=== PATIENT | male | born 1945 | race Caucasian/White ===

== ENCOUNTER 2018-01-12 11:24 | Observation (INO) ==
--- NOTE | 2018-01-12 11:44 | Emergency Department Note ---
Disposition Clinical Impression: Frail elderly, Weakness, CAD (coronary artery disease), Vomiting, Diarrhea, Dyspnea, Hypoxemia, Chest pain, Cardiomegaly, Hyperlipidemia, Hypertension Disposition: Admitted As Inpatient Referrals: Osvaldo Brink Jr, MD [Primary Care Provider] - Forms: ED Satisfaction Letter General Adult HPI - General Chief complaint: ED Shortness of Breath/Dyspnea Stated complaint: HOLLI Time Seen by Provider: 01/12/18 11:41 Source: patient Limitations: no limitations - History of Present Illness HPI Narrative: 72-year-old male with a history of atrial fibrillation and CAD reports emergency department complaining of weakness and shortness of breath. He describes dyspnea on exertion. The patient also describes orthopnea. The patient denies any history of heart failure, he answered history of COPD but is not actively treated for that he does not require oxygen at home. The patient reports increasing weakness over the last few days and increasing dyspnea with exertion over the last few weeks.. He has had some nonbloody emesis and diarrhea. There is no history of acute abdominal pain. There is no history of acute back pain. No syncope leg swelling or pain or coughing up blood. The patient denies any history of CHF per reports he takes his 's Lasix on occasion when his hands well. There is no history of acute leg swelling. No previous history of DVT PE or cancer. No coughing up blood confusion or difficulty moving the arms or legs independently no slurred speech or facial droop. No history of headache or bleeding of any sort. The patient is anticoagulated currently on Xarelto. While in the ED the patient developed some left-sided chest pain which resolved. Pain Scale: 0 - Related Data Home Medications Medication Instructions Recorded Confirmed Dexlansoprazole [Dexilant] 60 mg PO DAILY 08/18/15 09/15/15 Acetaminophen 650 mg PO Q8H 09/15/15 09/15/15 Previous Rx's Medication Instructions Recorded Rivaroxaban [Xarelto] 20 mg PO HS #30 tablet 08/19/15 Aspirin Enteric Coated [Aspirin EC] 81 mg PO DAILY #30 tablet.dr 08/20/15 Atorvastatin [Lipitor] 40 mg PO HS #90 tablet 08/20/15 Metoprolol [Lopressor] 50 mg PO BID #60 tablet 08/20/15 Nitroglycerin 0.4 mg SL Q5MIN PRN #10 tab.subl 08/20/15 Amoxicillin 875 mg PO BID #20 tablet 08/22/17 GuaiFENesin ER [Mucinex] 1,200 mg PO BID #20 tbbp.12hr 08/22/17 Loratadine [Allergy Relief] 10 mg PO DAILY #30 tablet 08/22/17 Polymyxn-B/Trimeth Opth Drops 1 drop BOTH EYES QID #1 bottle 08/22/17 [Polytrim Opth Drops] Allergies Allergy/AdvReac Type Severity Reaction Status Date / Time No Known Drug Allergies Allergy See Verified 01/12/18 11:30 Comments All systems ED: reviewed and negative except as stated. Past Medical History - Past Medical History Medical history: Reports: atrial fibrillation, hyperlipidemia, hypertension, myocardial infarction, other Surgical history: Reports: appendectomy Psychiatric history: Reports: no psych history - Social History Smoking Status: Former smoker Smokeless Tobacco Status: No Alcohol use: Reports: none Drug use: Reports: none Physical Exam - General Limitations: no limitations General appearance: alert, in no apparent distress - Head Head exam: atraumatic, normocephalic, normal inspection - Eye Eye exam: Present: normal appearance, PERRL, EOMI - ENT ENT exam: normal exam, normal oropharynx, mucous membranes moist - Neck Neck exam: Present: normal inspection, full ROM, trachea midline - Chest Chest inspection: Present: symmetric chest wall rise. Absent: tenderness - Respiratory Respiratory exam: Present: normal lung sounds bilaterally. Absent: respiratory distress, wheezes, accessory muscle use, prolonged expiratory phase - Cardiovascular Cardiovascular exam: Present: tachycardia, irregular rhythm - Abdominal Exam Abdominal exam: Present: soft, Non-Tender, normal bowel sounds. Absent: tenderness, distention, guarding, rebound, rigidity, Sharp's sign, Rovsing's sign, tenderness at McBurney's Point, ascites, pulsatile mass - Extremities Exam Extremities exam: Present: normal inspection, full ROM, normal capillary refill. Absent: tenderness, pedal edema, joint swelling, calf tenderness - Expanded Lower Extremity Exam Lower leg exam: Absent: Homans' sign Neurovascular/Tendon exam: Present: normal capillary refill. Absent: motor deficit, sensory deficit, tendon deficit, extremity cold to touch, pallor - Back Exam Back exam: Present: normal inspection, full ROM. Absent: tenderness, CVA tenderness (R), CVA tenderness (L), vertebral tenderness - Neurological Exam Neurological exam: Present: alert, oriented X3, CN II-XII intact. Absent: motor sensory deficit - Psychiatric Psychiatric exam: Present: normal affect, normal mood - Skin Skin exam: Present: warm, dry, intact, normal color. Absent: rash, cyanosis, diaphoresis, erythema, pallor, mottled Course Vital Signs Temperature 97.4 F L 01/12/18 11:30 Pulse Rate 111 01/12/18 11:30 Respiratory Rate 24 01/12/18 11:30 Blood Pressure 112/71 01/12/18 11:30 O2 Sat by Pulse Oximetry 94 01/12/18 11:30 Temperature 97.4 F L 01/12/18 11:30 Pulse Rate 101 01/12/18 13:02 Respiratory Rate 16 01/12/18 13:02 Blood Pressure 123/81 01/12/18 13:02 O2 Sat by Pulse Oximetry 94 01/12/18 13:02 Oxygen Delivery Oxygen Delivery Room Air Medical Decision Making - MDM Narrative Medical decision making narrative: The patient has a history of CAD atrial fibrillation and describes progressive dyspnea on exertion and weakness over the last few weeks. He describes orthopnea. He has no definitive history of CHF.. While in the ED developed some left-sided chest pain which was minor and resolved. His EKG shows no acute ST elevations, initial troponin negative. He is on Xarelto, aspirin ordered. The patient's chest x-ray suggestive of CHF. He has no known history of CHF. The patient has been somewhat tachycardic intermittently of 215, he is also been hypoxemic and 89% on room air. The patient usually has no oxygen requirement. Based on the patient's age, complaints of weakness and dyspnea on exertion, chest pain, with a known history of CAD with cardiac stents, as well as hypertension, hyperlipidemia, and what appears to be tachycardia and hypoxemia with descriptions of orthopnea as well as changes suggestive of CHF on the chest x-ray, I thought it would be appropriate to admit the patient to the hospital. I reviewed the case with the hospitalist on-call who has accepted the patient to their care. The patient is agreeable. - Lab Data Lab results reviewed: Yes I reviewed the patient's lab results. Result diagrams: 01/12/18 12:25 01/12/18 12:25 Lab Results 04/03/2601/12/18 01/12/18 Range/Units 12:25 12:25 12:25 WBC 10.3 (4.3-11.1) K/mcL RBC 4.55 (4.19-5.50) M/mcL Hgb 14.1 (12.9-16.9) g/dL Hct 41.5 (37.5-50.1) % MCV 91.2 (83.0-100.0) fL MCH 31.0 (28.0-33.3) pg MCHC 34.0 (31.6-35.5) g/dL RDW 13.7 (11.5-14.5) % Plt Count 211 (140-400) K/mcL MPV 9.5 (9.4-12.4) fL Immature Gran % 0.2 (0-4) % Seg Neutrophils % 75.2 % Lymphocytes % 14.0 % Monocytes % 7.0 % Eosinophils % 3.3 % Basophils % 0.3 % Neutrophils # 7.8 (1.6-8.9) K/mcL Lymphocytes # 1.5 (0.6-4.6) K/mcL Monocytes # 0.7 (0.0-1.3) K/mcL Eosinophils # 0.3 (0.0-0.6) K/mcL Basophils # 0.0 (0.0-0.2) K/mcL PT 17.0 H (9.4-12.1) Seconds INR 1.6 APTT 33.9 (26.0-36.0) Seconds Sodium 139 (136-145) mEq/L Potassium 4.2 (3.5-5.1) mEq/L Chloride 110 H (98-107) mEq/L Carbon Dioxide 20 L (23-29) mEq/L BUN 25 H (8-23) mg/dL Creatinine 1.01 (0.70-1.30) mg/dL Est GFR ( Amer) > 60 (> 60) Est GFR (Non-Af Amer) > 60 (> 60) BUN/Creatinine Ratio 25 (6-26) Glucose 111 H (70-105) mg/dL Calculated Osmolality 293 (280-300) Lactic Acid (0.5-2.2) mmol/L Calcium 8.9 (8.6-10.3) mg/dL Total Bilirubin 0.8 (0.3-1.0) mg/dL Direct Bilirubin 0.2 (0.0-0.2) mg/dL Indirect Bilirubin 0.6 (0.0-1.2) mg/dL AST 27 (13-39) Units/L ALT 30 (7-52) Units/L Alkaline Phosphatase 65 (34-104) Units/L Troponin I < 0.03 (< 0.04) ng/mL C-Reactive Protein (Less than 10) mg/L B-Natriuretic Peptide (Less than 100) pg/mL Serum Total Protein 6.5 (6.4-8.9) g/dL Albumin 4.1 (3.5-5.7) g/dL Globulin 2.4 (2.4-3.5) g/dL Albumin/Globulin Ratio 1.7 (1.1-2.2) Lipase 14 (11-82) Units/L 01/12/18 01/12/18 01/12/18 Range/Units 12:25 12:25 12:25 WBC (4.3-11.1) K/mcL RBC (4.19-5.50) M/mcL Hgb (12.9-16.9) g/dL Hct (37.5-50.1) % MCV (83.0-100.0) fL MCH (28.0-33.3) pg MCHC (31.6-35.5) g/dL RDW (11.5-14.5) % Plt Count (140-400) K/mcL MPV (9.4-12.4) fL Immature Gran % (0-4) % Seg Neutrophils % % Lymphocytes % % Monocytes % % Eosinophils % % Basophils % % Neutrophils # (1.6-8.9) K/mcL Lymphocytes # (0.6-4.6) K/mcL Monocytes # (0.0-1.3) K/mcL Eosinophils # (0.0-0.6) K/mcL Basophils # (0.0-0.2) K/mcL PT (9.4-12.1) Seconds INR APTT (26.0-36.0) Seconds Sodium (136-145) mEq/L Potassium (3.5-5.1) mEq/L Chloride (98-107) mEq/L Carbon Dioxide (23-29) mEq/L BUN (8-23) mg/dL Creatinine (0.70-1.30) mg/dL Est GFR ( Amer) (> 60) Est GFR (Non-Af Amer) (> 60) BUN/Creatinine Ratio (6-26) Glucose (70-105) mg/dL Calculated Osmolality (280-300) Lactic Acid 1.8 (0.5-2.2) mmol/L Calcium (8.6-10.3) mg/dL Total Bilirubin (0.3-1.0) mg/dL Direct Bilirubin (0.0-0.2) mg/dL Indirect Bilirubin (0.0-1.2) mg/dL AST (13-39) Units/L ALT (7-52) Units/L Alkaline Phosphatase (34-104) Units/L Troponin I (< 0.04) ng/mL C-Reactive Protein 5 (Less than 10) mg/L B-Natriuretic Peptide 287 H (Less than 100) pg/mL Serum Total Protein (6.4-8.9) g/dL Albumin (3.5-5.7) g/dL Globulin (2.4-3.5) g/dL Albumin/Globulin Ratio (1.1-2.2) Lipase (11-82) Units/L - Radiology Data Radiology results reviewed: Yes I reviewed the patient's radiology results.
[2018-01-12 12:42] LABS: Basophils % 0.3 %; Eosinophils # 0.3 K/mcL (0.0-0.6); Eosinophils % 3.3 %; Hematocrit 41.5 % (37.5-50.1); Hemoglobin 14.1 g/dL (12.9-16.9); Immature Granulocytes % 0.2 % (0-4); Lymphocytes # 1.5 K/mcL (0.6-4.6); Mean Corpuscular Volume 91.2 fL (83.0-100.0); Mean Platelet Volume 9.5 fL (9.4-12.4); Monocytes # 0.7 K/mcL (0.0-1.3); Neutrophils # 7.8 K/mcL (1.6-8.9); Platelet Count 211 K/mcL (140-400); Red Blood Count 4.55 M/mcL (4.19-5.50); Red Cell Distribution Width 13.7 % (11.5-14.5); Segmented Neutrophils % 75.2 %
[2018-01-12 12:47] LABS: INR 1.6
[2018-01-12 12:50] LABS: Activated Partial Thrombo Time 33.9 Seconds (26.0-36.0)
[2018-01-12 13:01] LABS: Troponin I < 0.03 ng/mL (< 0.04)
[2018-01-12 13:08] LABS: Alanine Aminotransferase 30 Units/L (7-52); Albumin 4.1 g/dL (3.5-5.7); Albumin/Globulin Ratio 1.7 (1.1-2.2); Alkaline Phosphatase 65 Units/L (34-104); Aspartate Amino Transferase 27 Units/L (13-39); BUN/Creatinine Ratio 25 (6-26); Bilirubin,Direct 0.2 mg/dL (0.0-0.2); Bilirubin,Indirect 0.6 mg/dL (0.0-1.2); Bilirubin,Total 0.8 mg/dL (0.3-1.0); Blood Urea Nitrogen 25 mg/dL (8-23); Calcium 8.9 mg/dL (8.6-10.3); Carbon Dioxide 20 mEq/L (23-29); Chloride 110 mEq/L (98-107); Globulin 2.4 g/dL (2.4-3.5); Glucose 111 mg/dL (70-105); Lipase 14 Units/L (11-82); Osmolality,Calculated 293 (280-300); Potassium 4.2 mEq/L (3.5-5.1); Sodium 139 mEq/L (136-145); Total Protein 6.5 g/dL (6.4-8.9); eGFR For African Americans > 60 (> 60); eGFR For Non-African Americans > 60 (> 60)
[2018-01-12] MEDS ORDERED: Aspirin 325 MG TABLET PO ONE (13:37)
[2018-01-12] MEDS ORDERED: Naloxone 0.4 MG/ML INJ IVP PRN (16:39)
[2018-01-12] MEDS ORDERED: Nitroglycerin 0.4 MG TAB.SUBL SL PRN (16:41)
[2018-01-12] MEDS ORDERED: *HR* Metoprolol 5 MG/5 ML VIAL IVP PRN (16:42)
--- NOTE | 2018-01-12 16:45 | Internal Med History&Physical ---
Date of Encounter: 01/12/18 Time of Encounter: 16:45 Internal Medicine - H&P: HPI Chief complaint: Shortness of breath Admitted From: Emergency Dept Plans for Post Hospital Care: Home History of present illness: Mr. Hardwick is a 72 year old male with history of atrial fibrillation, coronary artery disease, hypertension, who presents with complaints of shortness of breath. Patient reports a two-week history of exertional dyspnea and orthopnea , gradually progressive. She also reports having issues with elevated heart rate, which he attributes to starting simvastatin about one month ago. He stopped taking this medication with subsequent improvement in heart rate. However, he reports tachycardia for the last 2 days and was noted to be very tachycardic in the emergency room. He denies chest pain, fever, chills, vomiting or diarrhea but he does report dry cough with occasional slight mucus production for the last 2 days. Past Med Surg Social Fam HX - Past Medical History Source: patient, old records reviewed Medical history: atrial fibrillation, COPD, coronary artery disease, GERD, hyperlipidemia, hypertension, myocardial infarction, other Psychiatric history: no psych history - Past Surgical History Surgical History: appendectomy - Social History Smoking Status: Former smoker Smokeless Tobacco Status: No Alcohol use: none Drug use: none Occupational status: retired Current living situation: Home, With Family Activity Level: Independent ambulation Recent Out of Country Travel Within the Last 8 Weeks: No Exposure or Possible Exposure to Illness During Travel: No - Family History Mother Living Status: Hx Family Cardiac Disorders: Yes Hx Family Respiratory Disorders: Yes Hx Family Cancer: No Hx Family GI Disorders: No Hx Family Endocrine Disorder: Yes (diabetes) Hx Family Neuromuscular Disorders: No Hx Family Neurologic Disorders: No Hx Family HEENT Disorders: No Hx Family Autoimmune Disorders: No Father Living Status: Hx Family Cardiac Disorders: Yes Hx Family Respiratory Disorders: No Hx Family Cancer: No Hx Family GI Disorders: No Hx Family Endocrine Disorder: No Hx Family Neuromuscular Disorders: No Hx Family Neurologic Disorders: No Hx Family HEENT Disorders: No Hx Family Autoimmune Disorders: No Internal Medicine - H&P: Meds Rivaroxaban [Xarelto] 20 mg PO HS #30 tablet 08/19/15 [Rx] Aspirin Enteric Coated [Aspirin EC] 81 mg PO DAILY #30 tablet. 08/20/15 [Rx] Atorvastatin [Lipitor] 40 mg PO HS #90 tablet 08/20/15 [Rx] Metoprolol [Lopressor] 50 mg PO BID #60 tablet 08/20/15 [Rx] Nitroglycerin 0.4 mg SL Q5MIN PRN #10 tab.subl 08/20/15 [Rx] GuaiFENesin ER [Mucinex] 1,200 mg PO BID #20 tbbp.12hr 08/22/17 [Rx] Finasteride [Proscar] 5 mg PO DAILY 01/12/18 [History] Meloxicam [Mobic] 7.5 mg PO DAILY 01/12/18 [History] Multivit-Min/FA/Lycopen/Lutein [A [employer] Multivit Tab] 1 tab PO DAILY 03/26 [History] Omeprazole [PriLOSEC] 40 mg PO BID 01/12/18 [History] 3 Allergy/AdvReac Type Severity Reaction Status Date / Time No Known Drug Allergies Allergy See Verified 01/12/18 11:30 Comments All Systems PM: A 10-system review of systems was performed and is negative for pertinent findings except as documented above in the HPI. - Constitutional Constitutional: no chills, no fever(s), no night sweats - EENT Eyes: no change in vision, no discharge, no pain, no photophobia Ears: no ear discharge, no ear pain, no tinnitus Nose, mouth and throat: no dysphagia, no nasal discharge, no neck pain, no sore throat - Cardiovascular Cardiovascular ROS IM: dyspnea, dyspnea on exertion, lightheadedness, orthopnea - Respiratory Respiratory: cough, dyspnea, dyspnea on exertion, no wheezing, no excessive phlegm production - Gastrointestinal Gastrointestinal: no abdominal pain, no diarrhea, no hematemesis, no hematochezia, no melena, no nausea, no vomiting - Musculoskeletal Musculoskeletal ROS IM: no numbness, no tingling - Integumentary Integumentary IM: no rash, no unusual bruising - Neurological Neurological ROS: no confusion, no convulsions, no focal weakness, no numbness, no tingling, no tremor(s) - Hematologic/Lymphatic Hematologic/Lymphatic: no easy bruising - Constitutional Vitals: Temp Pulse Resp BP Pulse Ox 97.8 F 109 17 134/95 93 01/12/18 16:12 01/12/18 16:12 01/12/18 16:12 01/12/18 16:12 01/12/18 16:12 General appearance: Present: A&O X 3, obese, answers questions appropriately - Respiratory Respiratory exam: Present: CTAB, rales (faint bibasal crackles). Absent: accessory muscle use, rhonchi, wheezes - Cardiovascular Cardiovascular exam: Present: RRR, +S1, +S2. Absent: diastolic murmur, gallop, rubs, systolic murmur - GI/Abdominal GI/Abdominal exam: Present: normal bowel sounds, soft (obese), no peritoneal signs. Absent: distended, tenderness - Extremities Exam Extremities exam: Present: full ROM, pedal edema (trace), warm, radial pulses palpable and symmetrical. Absent: calf tenderness, cyanotic - Neurological Exam Neurological exam: Present: CN II-XII intact, oriented X3, no focal deficits. Absent: pronater drift, facial droop, speech deficit - Skin Skin exam: Present: dry, intact Internal Med - H&P Results - Labs CBC & Chem 7: 01/12/18 12:25 01/12/18 12:25 - Assessment and plan (1) CHF (congestive heart failure) Current Visit: Yes Status: Acute Assessment and plan: Echocardiogram from 2015 showed preserved ejection fraction, hypokinetic inferior segment, mild left atrial dilation, indeterminate diastolic function. Acute CHF could be tachycardia-induced? Patient is noted to be on as needed oral Lasix at home, will hold this and start IV Lasix along with fluid restriction, urine output monitoring and daily weights. Continue beta virginie, Telemetry monitoring, trend Troponins to r/o ischemia. Check TTE. Supplemental O2 and supportive care. Qualifiers: Heart failure type: diastolic Heart failure chronicity: acute on chronic Qualified Code(s): I50.33 - Acute on chronic diastolic (congestive) heart failure (2) Atrial fibrillation Current Visit: Yes Status: Chronic Assessment and plan: patient has tachycardia/RVR in the ER; EKG is not available, will repeat EKG; continue beta virginie and anticoagulation with Xarelto; Qualifiers: Atrial fibrillation type: paroxysmal Qualified Code(s): I48.0 - Paroxysmal atrial fibrillation (3) BPH (benign prostatic hyperplasia) Current Visit: Yes Status: Chronic Assessment and plan: resume Finasteride; Qualifiers: Lower urinary tract symptom presence: unspecified whether lower urinary tract symptoms present Qualified Code(s): N40.0 - Benign prostatic hyperplasia without lower urinary tract symptoms (4) CAD (coronary artery disease) Current Visit: Yes Status: Chronic Assessment and plan: s/p BMS to RCA; continue ASA, statin, beta virginie; Telemetry monitoring and cycle Troponins; Qualifiers: Coronary Disease-Associated Artery/Lesion type: [place] artery [place] vs. transplanted heart: [place] heart Associated angina: without angina Qualified Code(s): I25.10 - Atherosclerotic heart disease of [place] coronary artery without angina pectoris (5) Hyperlipidemia Current Visit: Yes Status: Chronic Qualifiers: Hyperlipidemia type: unspecified Qualified Code(s): E78.5 - Hyperlipidemia , unspecified (6) Hypertension Current Visit: Yes Status: Chronic Assessment and plan: BP well-controlled; continue home meds; Qualifiers: Hypertension type: essential hypertension Qualified Code(s): I10 - Essential (primary) hypertension (7) COPD (chronic obstructive pulmonary disease) Current Visit: Yes Status: Chronic Assessment and plan: not in acute exacerbation; PRN breathing treatments; not on home O2; Qualifiers: COPD type: unspecified COPD Qualified Code(s): J44.9 - Chronic obstructive pulmonary disease, unspecified - Time Spent With Patient Total time spent is greater than 50% in coordination of care (as documented) at patient's floor/unit and/or counseling patient:
[2018-01-12] MEDS: Acetaminophen 325 MG TABLET PO PRN (18:46)
[2018-01-12] MEDS: Furosemide 40 MG/4 ML VIAL IVP SCH (22:20)
[2018-01-12] MEDS: *HR* Rivaroxaban 10 MG TABLET PO SCH (22:26)
[2018-01-13 01:17] LABS: Basophils % 0.4 %; Eosinophils # 0.4 K/mcL (0.0-0.6); Eosinophils % 5.2 %; Hematocrit 39.6 % (37.5-50.1); Hemoglobin 13.6 g/dL (12.9-16.9); Immature Granulocytes % 0.3 % (0-4); Lymphocytes # 1.5 K/mcL (0.6-4.6); Lymphocytes % 20.6 %; Mean Corpuscular HGB Conc 34.3 g/dL (31.6-35.5); Mean Corpuscular Hemoglobin 30.8 pg (28.0-33.3); Mean Corpuscular Volume 89.8 fL (83.0-100.0); Mean Platelet Volume 9.7 fL (9.4-12.4); Monocytes # 0.7 K/mcL (0.0-1.3); Monocytes % 9.1 %; Neutrophils # 4.6 K/mcL (1.6-8.9); Platelet Count 193 K/mcL (140-400); Red Blood Count 4.41 M/mcL (4.19-5.50); Red Cell Distribution Width 13.8 % (11.5-14.5); Segmented Neutrophils % 64.4 %
[2018-01-13 01:22] LABS: BUN/Creatinine Ratio 22 (6-26); Blood Urea Nitrogen 23 mg/dL (8-23); Carbon Dioxide 26 mEq/L (23-29); Chloride 108 mEq/L (98-107); Glucose 100 mg/dL (70-105); Magnesium 2.1 mg/dL (1.6-2.6); Osmolality,Calculated 296 (280-300); Potassium 3.7 mEq/L (3.5-5.1); Sodium 141 mEq/L (136-145); eGFR For African Americans > 60 (> 60); eGFR For Non-African Americans > 60 (> 60)
[2018-01-13] MEDS: Aspirin Enteric Coated 81 MG Tablet PO SCH (09:54)
[2018-01-13] MEDS: Multivit/Ca/Min/Fe/FA 1 TAB TABLET PO SCH (09:54)
[2018-01-13] MEDS: Furosemide 40 MG/4 ML VIAL IVP SCH ×2 (09:54→22:21)
[2018-01-13] MEDS: Finasteride 5 MG TABLET PO SCH (09:54)
[2018-01-13] MEDS: Acetaminophen 325 MG TABLET PO PRN (15:54)
--- NOTE | 2018-01-13 16:01 | Internal Med Progress Note ---
Date of Encounter: 01/13/18 Time of Encounter: 15:56 - Assessment and plan (1) CHF (congestive heart failure) Current Visit: Yes Status: Acute Assessment and plan: Suspect acute on chronic diastolic CHF exacerbation. Symptomatic with SOB. CXR nonacute. TTE with EF 50%, indeterminate diastolic dysfunction, moderate mitral regurgitation and moderate pulmonary hypertension. No wall motion abnormalities. Shortness of breath improved with IV Lasix. Continue IV Lasix, daily weights, strict I&O's. Qualifiers: Heart failure type: diastolic Heart failure chronicity: acute on chronic Qualified Code(s): I50.33 - Acute on chronic diastolic (congestive) heart failure (2) Atrial fibrillation Current Visit: Yes Status: Chronic Assessment and plan: per hx. EKG with A. fib RVR on arrival. HR improved but still in low 100s. Uptitrate home BB. Continue Xarelto Qualifiers: Atrial fibrillation type: paroxysmal Qualified Code(s): I48.0 - Paroxysmal atrial fibrillation (3) CAD (coronary artery disease) Current Visit: Yes Status: Chronic Assessment and plan: per hx. 2014 [facility] with BMS to RCA; continue ASA, statin, beta virginie; serial troponins negative. Telemetry monitoring Qualifiers: Coronary Disease-Associated Artery/Lesion type: [place] artery [place] vs. transplanted heart: [place] heart Associated angina: without angina Qualified Code(s): I25.10 - Atherosclerotic heart disease of [place] coronary artery without angina pectoris (4) Hyperlipidemia Current Visit: Yes Status: Chronic Assessment and plan: hx. Cont home statin Qualifiers: Hyperlipidemia type: unspecified Qualified Code(s): E78.5 - Hyperlipidemia , unspecified (5) Hypertension Current Visit: Yes Status: Chronic Assessment and plan: per hx. BP variable. Uptitrate home BB to assist with rate control. Monitor BP and titrate PRN Qualifiers: Hypertension type: essential hypertension Qualified Code(s): I10 - Essential (primary) hypertension (6) BPH (benign prostatic hyperplasia) Current Visit: Yes Status: Chronic Assessment and plan: per hx. Cont home finasteride; Qualifiers: Lower urinary tract symptom presence: unspecified whether lower urinary tract symptoms present Qualified Code(s): N40.0 - Benign prostatic hyperplasia without lower urinary tract symptoms (7) COPD (chronic obstructive pulmonary disease) Current Visit: Yes Status: Chronic Assessment and plan: not in acute exacerbation; PRN breathing treatments; not on home O2; Qualifiers: COPD type: unspecified COPD Qualified Code(s): J44.9 - Chronic obstructive pulmonary disease, unspecified - Time Spent With Patient Total time spent is greater than 50% in coordination of care (as documented) at patient's floor/unit and/or counseling patient: - Subjective Interval history: Seen and examined at bedside. Patient is new to me, information obtained from chart review and patient report. He still has some shortness of breath but says he is significantly improved from arrival. Still be worse with exertion and relieved with rest. No fevers or chills, no cough. Denies chest pain. - Constitutional Vitals: Temp Pulse Resp BP Pulse Ox 97.6 F 102 17 141/90 91 01/13/18 15:41 01/13/18 15:41 01/13/18 15:41 01/13/18 15:41 01/13/18 15:41 General appearance: Present: A&O X 3, no acute distress, obese, answers questions appropriately - Head Head exam: Present: atraumatic, normocephalic - Eye Eye exam: Present: PERRL, conjuntiva pink, sclera anicteric Pupils: Present: PERRL - Neck Neck exam general surgery: Present: supple, trachea midline. Absent: lymphadenopathy - Respiratory Respiratory exam: Present: CTAB. Absent: accessory muscle use, rales, rhonchi, wheezes - Cardiovascular Cardiovascular exam: Present: irregular rhythm, +S1, +S2. Absent: diastolic murmur, gallop, rubs, systolic murmur - GI/Abdominal GI/Abdominal exam: Present: normal bowel sounds, soft, no peritoneal signs. Absent: distended, tenderness - Extremities Exam Extremities exam: Present: warm, radial pulses palpable and symmetrical. Absent : calf tenderness, cyanotic, pedal edema - Neurological Exam Neurological exam: Present: CN II-XII intact, oriented X3, no focal deficits. Absent: pronater drift, facial droop, speech deficit - Skin Skin exam: Present: dry, intact Internal Medicine: Result - Labs CBC & Chem 7: 01/13/18 00:42 01/13/18 00:42 Labs: Short CBC 01/13/18 Range/Units 00:42 WBC 7.1 (4.3-11.1) K/mcL Hgb 13.6 (12.9-16.9) g/dL Hct 39.6 (37.5-50.1) % Plt Count 193 (140-400) K/mcL Neutrophils # 4.6 (1.6-8.9) K/mcL BMP 01/13/18 00:42 Sodium 141 Potassium 3.7 Chloride 108 H Carbon Dioxide 26 BUN 23 Creatinine 1.06 Glucose 100 Calcium 9.0 Cardiac Enzymes 01/12/18 01/13/18 01/13/18 Range/Units 18:34 00:42 06:14 Troponin I < 0.03 < 0.03 < 0.03 (< 0.04) ng/mL - ABG Interpretation ABG results: PT/INR, D-dimer PT 17.0 Seconds (9.4-12.1) H 01/12/18 12:25 - Impressions Impressions Echocardiogram 01/13/18 16:44 Impressions: LVEF 50%. Unable to evaluate segmental wall motion due to technical quality. Indeterminate diastolic function. Mildly dilated left atrium. Mild aortic regurgitation. Moderate mitral regurgitation. Moderate pulmonary hypertension. The pericardium appears normal. Left Ventricular Wall Motion: Rest Echo Findings All wall segments showed normal motion. Findings: Study Quality * Technically sub-optimal due to body habitus. ECG Findings * Atrial fibrillation. Left Ventricle * LVEF 50%. * Unable to evaluate segmental wall motion due to technical quality. * Indeterminate diastolic function. Right Ventricle * Normal right ventricular structure and function. Left Atrium * Mildly dilated left atrium. Right Atrium * Normal right atrial size. Interatrial Septum * Interatrial septum not well evaluated. Aortic Valve * Mild aortic regurgitation. Mitral Valve * Moderate mitral regurgitation. Tricuspid Valve * Estimated RVSP is 32 mmHg. * Estimated RA pressure is 20 mmHg. * Moderate pulmonary hypertension. Pulmonic Valve * Pulmonic valve not well visualized. Aorta * Normally sized aortic root. Pericardium * The pericardium appears normal. IVC * The IVC is dilated. * IVC plethora is noted Consult Discharge Plan - Plan Referrals: Osvaldo Brink Jr, MD [Primary Care Provider] -
[2018-01-13] MEDS: *HR* Rivaroxaban 10 MG TABLET PO SCH (22:22)
--- NOTE | 2018-01-14 08:39 | Electrocardiograph Report ---
[facility] Test Date: 2018-01-12 Pat Name: Checo Hardwick Department: 102 Room: 3B63 Gender: M Fur Trimmer: Am : 1945 Requested By: Sylvester Fischer Order Number: [id number] Reading MD: Hugo Bloom Measurements Intervals [place] Rate: 108 P: SC: 0 QRS: 31 QRSD: 93 T: 30 QT: 329 QTc: 393 Interpretive Statements ATRIAL FIBRILLATION WITH RAPID VENTRICULAR RESPONSE WITH ABERRANT CONDUCTION OR VENTRICULAR PREMATURE COMPLEXES ABNORMAL RHYTHM ECG Electronically Signed On 01-14-2018 8:37:45 EDT by Hugo Bloom
[2018-01-14] MEDS: Furosemide 40 MG/4 ML VIAL IVP SCH (08:52)
[2018-01-14] MEDS: Aspirin Enteric Coated 81 MG Tablet PO SCH (08:53)
[2018-01-14] MEDS: Multivit/Ca/Min/Fe/FA 1 TAB TABLET PO SCH (08:53)
[2018-01-14] MEDS: Finasteride 5 MG TABLET PO SCH (08:53)
[2018-01-14] MEDS ORDERED: Ondansetron 4 MG/2 ML VIAL IVP ONE (10:31)
[2018-01-14 11:33] VITALS: BP 123/78
[2018-01-14 11:39] LABS: BUN/Creatinine Ratio 18 (6-26); Blood Urea Nitrogen 23 mg/dL (8-23); Calcium 9.4 mg/dL (8.6-10.3); Carbon Dioxide 25 mEq/L (23-29); Chloride 104 mEq/L (98-107); Glucose 127 mg/dL (70-105); Osmolality,Calculated 293 (280-300); Potassium 3.6 mEq/L (3.5-5.1); Sodium 139 mEq/L (136-145); eGFR For African Americans > 60 (> 60); eGFR For Non-African Americans 55 (> 60)
--- NOTE | 2018-01-14 12:31 | Discharge Summary ---
- NOTES TO OUTPATIENT PROVIDER Notes to Outpatient Provider: Recommend follow-up within 3-5 days for repeat CMP to monitor renal function Orders not resulted at time of discharge: Pending orders 01/12/18 20:40 EKG [ECG 12 lead ECG] [ECG] Routine Date of Encounter: 01/14/18 Time of Encounter: 12:29 - Discharge Diagnosis (1) CHF (congestive heart failure) Priority: Primary Status: Acute Comments: Suspect acute on chronic diastolic CHF exacerbation. Symptomatic with SOB. CXR nonacute. TTE with EF 50%, indeterminate diastolic dysfunction, moderate mitral regurgitation and moderate pulmonary hypertension. No wall motion abnormalities. Shortness of breath improved with IV Lasix. Discharge home on low-dose Lasix. Recommend follow-up with PCP within 3 days for monitoring of renal function. Qualifiers: Heart failure type: diastolic Heart failure chronicity: acute on chronic Qualified Code(s): I50.33 - Acute on chronic diastolic (congestive) heart failure (2) Atrial fibrillation Priority: Primary Status: Chronic Comments: per hx. EKG with A. brianda RVR on arrival, now rate controlled. Home BB increased with improvement in heart rate. Continue Xarelto. Recommend outpatient follow- up with primary twx operator. Qualifiers: Atrial fibrillation type: paroxysmal Qualified Code(s): I48.0 - Paroxysmal atrial fibrillation (3) CAD (coronary artery disease) Priority: Secondary Status: Chronic Comments: per hx. 2014 [facility] with BMS to RCA; Denied chest pain. Serial troponin negative Continue ASA, statin, beta virginie. Qualifiers: Coronary Disease-Associated Artery/Lesion type: [place] artery [place] vs. transplanted heart: [place] heart Associated angina: without angina Qualified Code(s): I25.10 - Atherosclerotic heart disease of [place] coronary artery without angina pectoris (4) Hyperlipidemia Priority: Secondary Status: Chronic Comments: hx. Cont home statin Qualifiers: Hyperlipidemia type: unspecified Qualified Code(s): E78.5 - Hyperlipidemia , unspecified (5) Hypertension Priority: Secondary Status: Chronic Comments: per hx. BP variable. Uptitrate home BB to assist with rate control. BP controlled at time of discharge Qualifiers: Hypertension type: essential hypertension Qualified Code(s): I10 - Essential (primary) hypertension (6) BPH (benign prostatic hyperplasia) Priority: Secondary Status: Chronic Comments: per hx. Cont home finasteride Qualifiers: Lower urinary tract symptom presence: unspecified whether lower urinary tract symptoms present Qualified Code(s): N40.0 - Benign prostatic hyperplasia without lower urinary tract symptoms (7) COPD (chronic obstructive pulmonary disease) Priority: Secondary Status: Chronic Comments: per hx. No evidence of exacerbation. Continue home inhalers. Qualifiers: COPD type: unspecified COPD Qualified Code(s): J44.9 - Chronic obstructive pulmonary disease, unspecified Hospital course: Mr. Hardwick is a 72 year old male Discharge discussed with: patient (Seen and examined at bedside. Patient says he feels significantly improved elect to go home today. No further chest pain or shortness of breath. Says Lasix has been working as he has been urinating excessively. Advised to follow-up with PCP as previously scheduled. Also advised to make an appointment with his twx operator within 1-2 weeks.) - Time Spent with Patient Total time spent providing and/or coordinating discharge services: - Discharge Medications Prescriptions: Furosemide [Lasix] 20 mg PO DAILY #30 tablet Metoprolol [Lopressor] 75 mg PO BID #60 tablet Home Medications: Rivaroxaban [Xarelto] 20 mg PO HS #30 tablet 08/19/15 [Rx] Aspirin Enteric Coated [Aspirin EC] 81 mg PO DAILY #30 tablet.dr 08/20/15 [Rx] Atorvastatin [Lipitor] 40 mg PO HS #90 tablet 08/20/15 [Rx] Nitroglycerin 0.4 mg SL Q5MIN PRN #10 tab.subl 08/20/15 [Rx] GuaiFENesin ER [Mucinex] 1,200 mg PO BID #20 tbbp.12hr 08/22/17 [Rx] Finasteride [Proscar] 5 mg PO DAILY 01/12/18 [History] Meloxicam [Mobic] 7.5 mg PO DAILY 01/12/18 [History] Multivit-Min/FA/Lycopen/Lutein [A Thru Z Select Multivit Tab] 1 tab PO DAILY 03/26 [History] Omeprazole [PriLOSEC] 40 mg PO BID 01/12/18 [History] Furosemide [Lasix] 20 mg PO DAILY #30 tablet 01/14/18 [Rx] Metoprolol [Lopressor] 75 mg PO BID #60 tablet 04/08/18 [Rx] Allergies/Adverse Reactions: 3 Allergy/AdvReac Type Severity Reaction Status Date / Time No Known Drug Allergies Allergy See Verified 01/12/18 11:30 Comments Date of admission: 01/12/18 15:09 Primary care physician: Osvaldo Brink Jr, MD Discharging clinician: Lizzy Donnelly Anticipated date of discharge: 01/14/18 - Constitutional Vitals: Temp Pulse Resp BP Pulse Ox 97.6 F 63 16 123/78 90 01/14/18 11:33 01/14/18 11:33 01/14/18 11:33 01/14/18 11:33 01/14/18 11:33 General appearance: Present: A&O X 3, no acute distress, obese, answers questions appropriately - Head Head exam: Present: atraumatic, normocephalic - Eye Eye exam: Present: PERRL, conjuntiva pink, sclera anicteric Pupils: Present: PERRL - Neck Neck exam general surgery: Present: supple, trachea midline. Absent: lymphadenopathy - Respiratory Respiratory exam: Present: CTAB. Absent: accessory muscle use, rales, rhonchi, wheezes - Cardiovascular Cardiovascular exam: Present: irregular rhythm, +S1, +S2. Absent: diastolic murmur, gallop, rubs, systolic murmur - GI/Abdominal GI/Abdominal exam: Present: normal bowel sounds, soft, no peritoneal signs. Absent: distended, tenderness - Extremities Exam Extremities exam: Present: warm, radial pulses palpable and symmetrical. Absent : calf tenderness, cyanotic, pedal edema - Neurological Exam Neurological exam: Present: CN II-XII intact, oriented X3, no focal deficits. Absent: pronater drift, facial droop, speech deficit - Skin Skin exam: Present: dry, intact - Patient Status Disposition: Home, Self-Care Condition: Good Functional capacity at discharge: independent ambulation Overall status at discharge: patient is back to baseline - Discharge Instructions Instructions: Metoprolol (By mouth), Furosemide (By mouth), Heart Failure (DC) , Atrial Fibrillation (DC), Chronic Obstructive Pulmonary Disease (DC), Chronic Hypertension (DC) Follow Up With: Cookie Read MD [Partnered Physician] - (Please call and make a follow- up appointment within 1-2 weeks) Osvaldo Brink Jr, MD [Primary Care Provider] - (Please call for follow-up with him within 7-10 days after discharge) - Diet and Activity Activity: increase activity as tolerated Diet: low fat, low cholesterol, low salt diet
== END 2018-01-14 13:15 | disposition home or self-care (01) ==
LOC: 3BNU 11:24 → EMEROO 11:24 → 3BNU 15:58
PROVIDERS: ADMIT Internal Medicine; ATTEND Registered Nurse

== ENCOUNTER 2018-03-12 06:16 | Observation (INO) ==
[2018-03-12] MEDS ORDERED: Furosemide 40 MG/4 ML VIAL IVP ONE ×2 (06:50→15:00)
--- NOTE | 2018-03-12 06:51 | Emergency Department Note ---
Disposition Clinical Impression: Dyspnea Qualifiers: Dyspnea type: unspecified Qualified Code(s): R06.00 - Dyspnea, unspecified CHF (congestive heart failure) Qualifiers: Heart failure type: diastolic Heart failure chronicity: acute on chronic Qualified Code(s): I50.33 - Acute on chronic diastolic (congestive) heart failure Disposition: Admitted As Inpatient Condition: Undetermined SOB HPI - General Chief Complaint: ED Shortness of Breath/Dyspnea Stated Complaint: Shortness of Breath Time Seen by Provider: 03/12/18 06:34 Source: patient Limitations: no limitations Nursing Notes Reviewed: Yes Vital Signs Reviewed: Yes - History of Present Illness This is a 72 year-old male with history of HTN, HLD, CAD/MO/stent, AF on Xarelto , CHF, and COPD (no home O2). He presents with dyspnea, gradually worsening for the past 2-3 days, worse with exertion and associated with orthopnea. He also reports a minimally productive cough. He denies any associated fever, chest pain , or leg pain/swelling. He says that he was admitted here about a month ago for CHF, started on Lasix. Pt Subjective Complaint: shortness of breath Onset (ago): day(s) (2-3) Severity: moderate Consistency/Duration: gradually worsening Improves with: nothing Worsens with: lying flat, exertion Known history of: COPD, congestive heart failure Associated symptoms: Reports: cough (occasional, nonproductive), orthopnea. Denies: chest pain, fever, lower extremity pain, palpitations, abdominal pain Treatment prior to arrival: diuretics Cough present: Yes Sputum production: No - Related Data Home Medications Medication Instructions Recorded Confirmed Finasteride [Proscar] 5 mg PO DAILY 01/12/18 03/12/18 Meloxicam [Mobic] 7.5 mg PO DAILY 01/12/18 03/12/18 Multivit-Min/FA/Lycopen/Lutein [A 1 tab PO DAILY 01/12/18 03/12/18 Thru Z Select Multivit Tab] Omeprazole [PriLOSEC] 40 mg PO BID 01/12/18 03/12/18 Nitroglycerin [Nitrostat] 0.4 mg SL Q5M PRN 03/12/18 03/12/18 Previous Rx's Medication Instructions Recorded Rivaroxaban [Xarelto] 20 mg PO HS #30 tablet 08/19/15 Aspirin Enteric Coated [Aspirin EC] 81 mg PO DAILY #30 tablet. 08/20/15 GuaiFENesin ER [Mucinex] 1,200 mg PO BID #20 tbbp.12hr 08/22/17 Furosemide [Lasix] 20 mg PO DAILY #30 tablet 01/14/18 Metoprolol [Lopressor] 75 mg PO BID #60 tablet 01/14/18 Allergies Allergy/AdvReac Type Severity Reaction Status Date / Time Lptrqua-Jfc-Lde Reductase AdvReac Muscle Pain Verified 03/12/18 08:51 Inhibitor [Statins] All systems ED: reviewed and negative except as stated. Constitutional: Denies: fever Cardiovascular: Reports: dyspnea on exertion, orthopnea. Denies: chest pain Respiratory: Reports: cough, dyspnea. Denies: sputum production Gastrointestinal: Reports: constipation. Denies: abdominal pain Past Medical History - Past Medical History Medical history: Reports: atrial fibrillation, COPD, coronary artery disease, GERD, hyperlipidemia, hypertension, myocardial infarction, other Surgical history: Reports: appendectomy Psychiatric history: Reports: no psych history - Social History Smoking Status: Former smoker Smokeless Tobacco Status: No Alcohol use: Reports: none Drug use: Reports: none Physical Exam - General Limitations: no limitations General appearance: alert, in no apparent distress - Head Head exam: atraumatic, normocephalic - Eye Eye exam: Present: normal appearance - ENT ENT exam: normal exam - Neck Neck exam: Present: normal inspection - Respiratory Respiratory exam: Present: other (rales in bases bilaterally). Absent: respiratory distress - Cardiovascular Cardiovascular exam: Present: regular rate, irregular rhythm - Abdominal Exam Abdominal exam: Present: soft, Non-Tender. Absent: distention - Extremities Exam Extremities exam: Present: pedal edema (mild, bilateral). Absent: calf tenderness - Neurological Exam Neurological exam: Present: alert, oriented X3. Absent: motor sensory deficit - Psychiatric Psychiatric exam: Present: normal affect, normal mood - Skin Skin exam: Present: warm, dry, intact Course Vital Signs Temperature 97.5 F L 03/12/18 06:32 Pulse Rate 101 03/12/18 06:32 Respiratory Rate 18 03/12/18 06:32 Blood Pressure 143/98 03/12/18 06:32 O2 Sat by Pulse Oximetry 95 03/12/18 06:32 Temperature 98.4 F 03/13/18 20:21 Pulse Rate 115 06/05/18 20:21 Respiratory Rate 18 03/13/18 20:21 Blood Pressure 125/88 03/13/18 20:21 O2 Sat by Pulse Oximetry 95 03/13/18 20:21 Oxygen Delivery Oxygen Delivery Room Air Shortness of Breath/Dyspnea - MDM Narrative Medical decision making narrative: At shift change, I'm signing patient's care over to Dr. Petersen, with all diagnostics pending. - Differential Diagnosis Likely: acute exacerbation of chronic obstructive airways disease, congestive heart failure, pneumonia - Lab Data Result diagrams: 03/12/18 07:05 03/13/18 07:12 Lab Results 03/12/18 03/12/18 03/12/18 Range/Units 07:05 07:05 07:05 WBC 8.1 (4.3-11.1) K/mcL RBC 4.23 (4.19-5.50) M/mcL Hgb 13.7 (12.9-16.9) g/dL Hct 39.5 (37.5-50.1) % MCV 93.4 (83.0-100.0) fL MCH 32.4 (28.0-33.3) pg MCHC 34.7 (31.6-35.5) g/dL RDW 14.2 (11.5-14.5) % Plt Count 201 (140-400) K/mcL MPV 9.9 (9.4-12.4) fL Immature Gran % 0.4 (0-4) % Seg Neutrophils % 74.0 % Lymphocytes % 14.3 % Monocytes % 7.4 % Eosinophils % 3.7 % Basophils % 0.2 % Neutrophils # 6.0 (1.6-8.9) K/mcL Lymphocytes # 1.2 (0.6-4.6) K/mcL Monocytes # 0.6 (0.0-1.3) K/mcL Eosinophils # 0.3 (0.0-0.6) K/mcL Basophils # 0.0 (0.0-0.2) K/mcL PT (9.4-12.1) Seconds INR APTT (26.0-36.0) Seconds Sodium 142 (136-145) mEq/L Potassium 3.7 (3.5-5.1) mEq/L Chloride 111 H (98-107) mEq/L Carbon Dioxide 24 (23-29) mEq/L BUN 21 (8-23) mg/dL Creatinine 0.87 (0.70-1.30) mg/dL Est GFR ( Amer) > 60 (> 60) Est GFR (Non-Af Amer) > 60 (> 60) BUN/Creatinine Ratio 24 (6-26) Glucose 99 (70-105) mg/dL Calculated Osmolality 297 (280-300) Calcium 8.8 (8.6-10.3) mg/dL Total Bilirubin 0.7 (0.3-1.0) mg/dL Direct Bilirubin 0.1 (0.0-0.2) mg/dL Indirect Bilirubin 0.6 (0.0-1.2) mg/dL AST 43 H (13-39) Units/L ALT 48 (7-52) Units/L Alkaline Phosphatase 62 (34-104) Units/L Troponin I < 0.03 (< 0.04) ng/mL B-Natriuretic Peptide 410 H (Less than 100) pg/mL Serum Total Protein 6.2 L (6.4-8.9) g/dL Albumin 4.0 (3.5-5.7) g/dL Globulin 2.2 L (2.4-3.5) g/dL Albumin/Globulin Ratio 1.8 (1.1-2.2) 03/12/18 Range/Units 07:05 WBC (4.3-11.1) K/mcL RBC (4.19-5.50) M/mcL Hgb (12.9-16.9) g/dL Hct (37.5-50.1) % MCV (83.0-100.0) fL MCH (28.0-33.3) pg MCHC (31.6-35.5) g/dL RDW (11.5-14.5) % Plt Count (140-400) K/mcL MPV (9.4-12.4) fL Immature Gran % (0-4) % Seg Neutrophils % % Lymphocytes % % Monocytes % % Eosinophils % % Basophils % % Neutrophils # (1.6-8.9) K/mcL Lymphocytes # (0.6-4.6) K/mcL Monocytes # (0.0-1.3) K/mcL Eosinophils # (0.0-0.6) K/mcL Basophils # (0.0-0.2) K/mcL PT 17.7 H (9.4-12.1) Seconds INR 1.6 APTT 39.1 H (26.0-36.0) Seconds Sodium (136-145) mEq/L Potassium (3.5-5.1) mEq/L Chloride (98-107) mEq/L Carbon Dioxide (23-29) mEq/L BUN (8-23) mg/dL Creatinine (0.70-1.30) mg/dL Est GFR ( Amer) (> 60) Est GFR (Non-Af Amer) (> 60) BUN/Creatinine Ratio (6-26) Glucose (70-105) mg/dL Calculated Osmolality (280-300) Calcium (8.6-10.3) mg/dL Total Bilirubin (0.3-1.0) mg/dL Direct Bilirubin (0.0-0.2) mg/dL Indirect Bilirubin (0.0-1.2) mg/dL AST (13-39) Units/L ALT (7-52) Units/L Alkaline Phosphatase (34-104) Units/L Troponin I (< 0.04) ng/mL B-Natriuretic Peptide (Less than 100) pg/mL Serum Total Protein (6.4-8.9) g/dL Albumin (3.5-5.7) g/dL Globulin (2.4-3.5) g/dL Albumin/Globulin Ratio (1.1-2.2)
[2018-03-12 07:18] LABS: Basophils % 0.2 %; Eosinophils # 0.3 K/mcL (0.0-0.6); Eosinophils % 3.7 %; Hematocrit 39.5 % (37.5-50.1); Hemoglobin 13.7 g/dL (12.9-16.9); Immature Granulocytes % 0.4 % (0-4); Lymphocytes # 1.2 K/mcL (0.6-4.6); Lymphocytes % 14.3 %; Mean Corpuscular HGB Conc 34.7 g/dL (31.6-35.5); Mean Corpuscular Hemoglobin 32.4 pg (28.0-33.3); Mean Corpuscular Volume 93.4 fL (83.0-100.0); Mean Platelet Volume 9.9 fL (9.4-12.4); Monocytes # 0.6 K/mcL (0.0-1.3); Monocytes % 7.4 %; Platelet Count 201 K/mcL (140-400); Red Blood Count 4.23 M/mcL (4.19-5.50); Red Cell Distribution Width 14.2 % (11.5-14.5)
--- NOTE | 2018-03-12 07:25 | Emergency Department Note ---
Disposition Clinical Impression: Dyspnea Qualifiers: Dyspnea type: unspecified Qualified Code(s): R06.00 - Dyspnea, unspecified CHF (congestive heart failure) Qualifiers: Heart failure type: systolic Heart failure chronicity: acute on chronic Qualified Code(s): I50.23 - Acute on chronic systolic (congestive) heart failure Disposition: Admitted As Inpatient Condition: Undetermined Referrals: Osvaldo Brink Jr, MD [Primary Care Provider] - Forms: ED Satisfaction Letter Time of Disposition: 08:31 General Adult HPI - General Chief complaint: ED Abdominal Pain Stated complaint: constipation Time Seen by Provider: 03/12/18 06:34 Source: patient Mode of arrival: ambulatory Limitations: no limitations Nursing Notes Reviewed: Yes Vital Signs Reviewed: Yes - History of Present Illness HPI Narrative: 72-year-old male with history of CAD, hypertension, arrives to the emergency department with complaint of shortness of breath. It is primarily when he is laying flat and feels as though his abdomen is pushing up into his chest. He feels as though he is laying down he cannot catch a deep breath particularly on the left side. The patient denies any associated chest pain, and has no pleuritic nature of his shortness of breath. The patient states that he has had some intermittent stool that is been loose as well as hard. The patient states he is having difficulty with bowel movements associated with differing loose stool and hard stool. The patient states he has to strain very hard. Patient denies any nausea or vomiting associated with it. The patient states that he recently was admitted to the hospital with concern for congestive heart failure but he was told by his special order jeweler that he did not have congestive heart failure. The patient states that he has no associated chest pain with this. He does admit to some bilateral lower extremity swelling. He denies any difficulty in breathing with ambulation or chest pain with ambulation. The patient does have a history of cardiac stent back in 2015 as well as atrial fibrillation and which she is currently taking the Xarelto. He denies any other complaints at this time. Pain Scale: 4 - Related Data Home Medications Medication Instructions Recorded Confirmed Finasteride [Proscar] 5 mg PO DAILY 01/12/18 01/12/18 Meloxicam [Mobic] 7.5 mg PO DAILY 01/12/18 01/12/18 Multivit-Min/FA/Lycopen/Lutein [A 1 tab PO DAILY 01/12/18 01/12/18 Thru Z Select Multivit Tab] Omeprazole [PriLOSEC] 40 mg PO BID 01/12/18 01/12/18 Previous Rx's Medication Instructions Recorded Rivaroxaban [Xarelto] 20 mg PO HS #30 tablet 08/19/15 Aspirin Enteric Coated [Aspirin EC] 81 mg PO DAILY #30 tablet.dr 08/20/15 Atorvastatin [Lipitor] 40 mg PO HS #90 tablet 08/20/15 Nitroglycerin 0.4 mg SL Q5MIN PRN #10 tab.subl 08/20/15 GuaiFENesin ER [Mucinex] 1,200 mg PO BID #20 tbbp.12hr 08/22/17 Furosemide [Lasix] 20 mg PO DAILY #30 tablet 01/14/18 Metoprolol [Lopressor] 75 mg PO BID #60 tablet 01/14/18 Allergies Allergy/AdvReac Type Severity Reaction Status Date / Time No Known Drug Allergies Allergy See Verified 01/12/18 11:30 Comments All systems ED: reviewed and negative except as stated. Constitutional: Denies: fever Cardiovascular: Reports: dyspnea on exertion, orthopnea. Denies: chest pain Respiratory: Reports: cough, dyspnea. Denies: sputum production Gastrointestinal: Reports: constipation. Denies: abdominal pain Past Medical History - Past Medical History Attestation: Yes The following information was validated with the patient. Source: patient Medical history: Reports: atrial fibrillation, COPD, coronary artery disease, GERD, hyperlipidemia, hypertension, myocardial infarction, other Surgical history: Reports: appendectomy Psychiatric history: Reports: no psych history - Social History Smoking Status: Former smoker Smokeless Tobacco Status: No Alcohol use: Reports: none Drug use: Reports: none Physical Exam - General Limitations: no limitations General appearance: alert, in no apparent distress - Head Head exam: atraumatic, normocephalic, normal inspection - Eye Eye exam: Present: normal appearance, PERRL, EOMI - ENT ENT exam: normal exam, normal oropharynx, mucous membranes moist - Neck Neck exam: Present: normal inspection, full ROM, trachea midline - Chest Chest inspection: Present: normal inspection, symmetric chest wall rise - Respiratory Respiratory exam: Present: normal lung sounds bilaterally - Cardiovascular Cardiovascular exam: Present: normal rhythm, tachycardia, normal heart sounds - Abdominal Exam Abdominal exam: Present: soft, Non-Tender, distention. Absent: tenderness, guarding, rebound, rigidity - Extremities Exam Extremities exam: Present: full ROM, pedal edema (trace pitting). Absent: tenderness - Neurological Exam Neurological exam: Present: alert, oriented X3 Course Vital Signs Temperature 97.5 F L 03/12/18 06:32 Pulse Rate 101 03/12/18 06:32 Respiratory Rate 18 03/12/18 06:32 Blood Pressure 143/98 03/12/18 06:32 O2 Sat by Pulse Oximetry 95 03/12/18 06:32 Temperature 97.5 F L 03/12/18 06:32 Pulse Rate 106 03/12/18 07:56 Respiratory Rate 18 03/12/18 07:56 Blood Pressure 120/93 03/12/18 07:56 O2 Sat by Pulse Oximetry 91 03/12/18 07:56 Oxygen Delivery Oxygen Delivery Room Air Medical Decision Making - MDM Narrative Medical decision making narrative: Workup in the emergency department demonstrates findings consistent with congestive heart failure. The patient has an elevated BNP, chest x-ray findings are vascular congestion, and bilateral pleural effusions on CT scan of the abdomen and pelvis. CT of the abdomen and pelvis reveals no acute process. Patient does have a history of irritable bowel syndrome which likely explains his abdominal symptoms. We will admit the patient to the hospital for further workup and care with likely a repeat echocardiogram. The patient agrees to plan of care. No further questions or concerns noted at this time. Accepted by Dr. Alston. - Lab Data Lab results reviewed: Yes I reviewed the patient's lab results. Result diagrams: 03/12/18 07:05 03/12/18 07:05 Lab Results 03/12/18 03/12/18 03/12/18 Range/Units 07:05 07:05 07:05 WBC 8.1 (4.3-11.1) K/mcL RBC 4.23 (4.19-5.50) M/mcL Hgb 13.7 (12.9-16.9) g/dL Hct 39.5 (37.5-50.1) % MCV 93.4 (83.0-100.0) fL MCH 32.4 (28.0-33.3) pg MCHC 34.7 (31.6-35.5) g/dL RDW 14.2 (11.5-14.5) % Plt Count 201 (140-400) K/mcL MPV 9.9 (9.4-12.4) fL Immature Gran % 0.4 (0-4) % Seg Neutrophils % 74.0 % Lymphocytes % 14.3 % Monocytes % 7.4 % Eosinophils % 3.7 % Basophils % 0.2 % Neutrophils # 6.0 (1.6-8.9) K/mcL Lymphocytes # 1.2 (0.6-4.6) K/mcL Monocytes # 0.6 (0.0-1.3) K/mcL Eosinophils # 0.3 (0.0-0.6) K/mcL Basophils # 0.0 (0.0-0.2) K/mcL PT (9.4-12.1) Seconds INR APTT (26.0-36.0) Seconds Sodium 142 (136-145) mEq/L Potassium 3.7 (3.5-5.1) mEq/L Chloride 111 H (98-107) mEq/L Carbon Dioxide 24 (23-29) mEq/L BUN 21 (8-23) mg/dL Creatinine 0.87 (0.70-1.30) mg/dL Est GFR ( Amer) > 60 (> 60) Est GFR (Non-Af Amer) > 60 (> 60) BUN/Creatinine Ratio 24 (6-26) Glucose 99 (70-105) mg/dL Calculated Osmolality 297 (280-300) Calcium 8.8 (8.6-10.3) mg/dL Total Bilirubin 0.7 (0.3-1.0) mg/dL Direct Bilirubin 0.1 (0.0-0.2) mg/dL Indirect Bilirubin 0.6 (0.0-1.2) mg/dL AST 43 H (13-39) Units/L ALT 48 (7-52) Units/L Alkaline Phosphatase 62 (34-104) Units/L Troponin I < 0.03 (< 0.04) ng/mL B-Natriuretic Peptide 410 H (Less than 100) pg/mL Serum Total Protein 6.2 L (6.4-8.9) g/dL Albumin 4.0 (3.5-5.7) g/dL Globulin 2.2 L (2.4-3.5) g/dL Albumin/Globulin Ratio 1.8 (1.1-2.2) 03/12/18 Range/Units 07:05 WBC (4.3-11.1) K/mcL RBC (4.19-5.50) M/mcL Hgb (12.9-16.9) g/dL Hct (37.5-50.1) % MCV (83.0-100.0) fL MCH (28.0-33.3) pg MCHC (31.6-35.5) g/dL RDW (11.5-14.5) % Plt Count (140-400) K/mcL MPV (9.4-12.4) fL Immature Gran % (0-4) % Seg Neutrophils % % Lymphocytes % % Monocytes % % Eosinophils % % Basophils % % Neutrophils # (1.6-8.9) K/mcL Lymphocytes # (0.6-4.6) K/mcL Monocytes # (0.0-1.3) K/mcL Eosinophils # (0.0-0.6) K/mcL Basophils # (0.0-0.2) K/mcL PT 17.7 H (9.4-12.1) Seconds INR 1.6 APTT 39.1 H (26.0-36.0) Seconds Sodium (136-145) mEq/L Potassium (3.5-5.1) mEq/L Chloride (98-107) mEq/L Carbon Dioxide (23-29) mEq/L BUN (8-23) mg/dL Creatinine (0.70-1.30) mg/dL Est GFR ( Amer) (> 60) Est GFR (Non-Af Amer) (> 60) BUN/Creatinine Ratio (6-26) Glucose (70-105) mg/dL Calculated Osmolality (280-300) Calcium (8.6-10.3) mg/dL Total Bilirubin (0.3-1.0) mg/dL Direct Bilirubin (0.0-0.2) mg/dL Indirect Bilirubin (0.0-1.2) mg/dL AST (13-39) Units/L ALT (7-52) Units/L Alkaline Phosphatase (34-104) Units/L Troponin I (< 0.04) ng/mL B-Natriuretic Peptide (Less than 100) pg/mL Serum Total Protein (6.4-8.9) g/dL Albumin (3.5-5.7) g/dL Globulin (2.4-3.5) g/dL Albumin/Globulin Ratio (1.1-2.2) - Radiology Data Radiology results reviewed: Yes I reviewed the patient's radiology results. - EKG Data EKG #1 EKG attestation: Yes I reviewed and interpreted this EKG. EKG results narrative: Heart rate 93 beats for minute. Atrial fibrillation. No ST elevation or ST depression noted.
[2018-03-12 07:35] LABS: INR 1.6; Prothrombin Time 17.7 Seconds (9.4-12.1)
[2018-03-12 07:37] LABS: Activated Partial Thrombo Time 39.1 Seconds (26.0-36.0)
[2018-03-12 07:45] LABS: Troponin I < 0.03 ng/mL (< 0.04)
[2018-03-12 07:46] LABS: Alanine Aminotransferase 48 Units/L (7-52); Albumin/Globulin Ratio 1.8 (1.1-2.2); Alkaline Phosphatase 62 Units/L (34-104); Aspartate Amino Transferase 43 Units/L (13-39); BUN/Creatinine Ratio 24 (6-26); Bilirubin,Direct 0.1 mg/dL (0.0-0.2); Bilirubin,Indirect 0.6 mg/dL (0.0-1.2); Bilirubin,Total 0.7 mg/dL (0.3-1.0); Blood Urea Nitrogen 21 mg/dL (8-23); Calcium 8.8 mg/dL (8.6-10.3); Carbon Dioxide 24 mEq/L (23-29); Chloride 111 mEq/L (98-107); Globulin 2.2 g/dL (2.4-3.5); Glucose 99 mg/dL (70-105); Osmolality,Calculated 297 (280-300); Potassium 3.7 mEq/L (3.5-5.1); Sodium 142 mEq/L (136-145); Total Protein 6.2 g/dL (6.4-8.9); eGFR For African Americans > 60 (> 60); eGFR For Non-African Americans > 60 (> 60)
--- NOTE | 2018-03-12 07:53 | Emergency Department Note ---
Disposition Clinical Impression: Dyspnea Qualifiers: Dyspnea type: unspecified Qualified Code(s): R06.00 - Dyspnea, unspecified Disposition: Still a Patient Referrals: Osvaldo Brink Jr, MD [Primary Care Provider] - Forms: ED Satisfaction Letter General Adult HPI - General Chief complaint: ED Abdominal Pain Stated complaint: constipation Time Seen by Provider: 03/12/18 06:34 Source: patient Mode of arrival: ambulatory Limitations: no limitations - History of Present Illness Pain Scale: 4 - Related Data Home Medications Medication Instructions Recorded Confirmed Finasteride [Proscar] 5 mg PO DAILY 01/12/18 01/12/18 Meloxicam [Mobic] 7.5 mg PO DAILY 01/12/18 01/12/18 Multivit-Min/FA/Lycopen/Lutein [A 1 tab PO DAILY 01/12/18 01/12/18 Thru Z Select Multivit Tab] Omeprazole [PriLOSEC] 40 mg PO BID 01/12/18 01/12/18 Previous Rx's Medication Instructions Recorded Rivaroxaban [Xarelto] 20 mg PO HS #30 tablet 08/19/15 Aspirin Enteric Coated [Aspirin EC] 81 mg PO DAILY #30 tablet.dr 08/20/15 Atorvastatin [Lipitor] 40 mg PO HS #90 tablet 08/20/15 Nitroglycerin 0.4 mg SL Q5MIN PRN #10 tab.subl 08/20/15 GuaiFENesin ER [Mucinex] 1,200 mg PO BID #20 tbbp.12hr 08/22/17 Furosemide [Lasix] 20 mg PO DAILY #30 tablet 01/14/18 Metoprolol [Lopressor] 75 mg PO BID #60 tablet 01/14/18 Allergies Allergy/AdvReac Type Severity Reaction Status Date / Time No Known Drug Allergies Allergy See Verified 01/12/18 11:30 Comments Constitutional: Denies: fever Cardiovascular: Reports: dyspnea on exertion, orthopnea. Denies: chest pain Respiratory: Reports: cough, dyspnea. Denies: sputum production Gastrointestinal: Reports: constipation. Denies: abdominal pain Past Medical History - Past Medical History Medical history: Reports: atrial fibrillation, COPD, coronary artery disease, GERD, hyperlipidemia, hypertension, myocardial infarction, other Surgical history: Reports: appendectomy Psychiatric history: Reports: no psych history - Social History Smoking Status: Former smoker Smokeless Tobacco Status: No Alcohol use: Reports: none Drug use: Reports: none Physical Exam - General Limitations: no limitations General appearance: alert, in no apparent distress Course Vital Signs Temperature 97.5 F L 03/12/18 06:32 Pulse Rate 101 03/12/18 06:32 Respiratory Rate 18 03/12/18 06:32 Blood Pressure 143/98 03/12/18 06:32 O2 Sat by Pulse Oximetry 95 03/12/18 06:32 Temperature 97.5 F L 03/12/18 06:32 Pulse Rate 101 03/12/18 06:32 Respiratory Rate 18 03/12/18 06:32 Blood Pressure 143/98 03/12/18 06:32 O2 Sat by Pulse Oximetry 95 03/12/18 06:32 Oxygen Delivery Oxygen Delivery Room Air Medical Decision Making - Lab Data Result diagrams: 03/12/18 07:05 03/12/18 07:05 Lab Results 03/12/18 03/12/18 03/12/18 Range/Units 07:05 07:05 07:05 WBC 8.1 (4.3-11.1) K/mcL RBC 4.23 (4.19-5.50) M/mcL Hgb 13.7 (12.9-16.9) g/dL Hct 39.5 (37.5-50.1) % MCV 93.4 (83.0-100.0) fL MCH 32.4 (28.0-33.3) pg MCHC 34.7 (31.6-35.5) g/dL RDW 14.2 (11.5-14.5) % Plt Count 201 (140-400) K/mcL MPV 9.9 (9.4-12.4) fL Immature Gran % 0.4 (0-4) % Seg Neutrophils % 74.0 % Lymphocytes % 14.3 % Monocytes % 7.4 % Eosinophils % 3.7 % Basophils % 0.2 % Neutrophils # 6.0 (1.6-8.9) K/mcL Lymphocytes # 1.2 (0.6-4.6) K/mcL Monocytes # 0.6 (0.0-1.3) K/mcL Eosinophils # 0.3 (0.0-0.6) K/mcL Basophils # 0.0 (0.0-0.2) K/mcL PT (9.4-12.1) Seconds INR APTT (26.0-36.0) Seconds Sodium 142 (136-145) mEq/L Potassium 3.7 (3.5-5.1) mEq/L Chloride 111 H (98-107) mEq/L Carbon Dioxide 24 (23-29) mEq/L BUN 21 (8-23) mg/dL Creatinine 0.87 (0.70-1.30) mg/dL Est GFR ( Amer) > 60 (> 60) Est GFR (Non-Af Amer) > 60 (> 60) BUN/Creatinine Ratio 24 (6-26) Glucose 99 (70-105) mg/dL Calculated Osmolality 297 (280-300) Calcium 8.8 (8.6-10.3) mg/dL Total Bilirubin 0.7 (0.3-1.0) mg/dL Direct Bilirubin 0.1 (0.0-0.2) mg/dL Indirect Bilirubin 0.6 (0.0-1.2) mg/dL AST 43 H (13-39) Units/L ALT 48 (7-52) Units/L Alkaline Phosphatase 62 (34-104) Units/L Troponin I < 0.03 (< 0.04) ng/mL B-Natriuretic Peptide 410 H (Less than 100) pg/mL Serum Total Protein 6.2 L (6.4-8.9) g/dL Albumin 4.0 (3.5-5.7) g/dL Globulin 2.2 L (2.4-3.5) g/dL Albumin/Globulin Ratio 1.8 (1.1-2.2) 03/12/18 Range/Units 07:05 WBC (4.3-11.1) K/mcL RBC (4.19-5.50) M/mcL Hgb (12.9-16.9) g/dL Hct (37.5-50.1) % MCV (83.0-100.0) fL MCH (28.0-33.3) pg MCHC (31.6-35.5) g/dL RDW (11.5-14.5) % Plt Count (140-400) K/mcL MPV (9.4-12.4) fL Immature Gran % (0-4) % Seg Neutrophils % % Lymphocytes % % Monocytes % % Eosinophils % % Basophils % % Neutrophils # (1.6-8.9) K/mcL Lymphocytes # (0.6-4.6) K/mcL Monocytes # (0.0-1.3) K/mcL Eosinophils # (0.0-0.6) K/mcL Basophils # (0.0-0.2) K/mcL PT 17.7 H (9.4-12.1) Seconds INR 1.6 APTT 39.1 H (26.0-36.0) Seconds Sodium (136-145) mEq/L Potassium (3.5-5.1) mEq/L Chloride (98-107) mEq/L Carbon Dioxide (23-29) mEq/L BUN (8-23) mg/dL Creatinine (0.70-1.30) mg/dL Est GFR ( Amer) (> 60) Est GFR (Non-Af Amer) (> 60) BUN/Creatinine Ratio (6-26) Glucose (70-105) mg/dL Calculated Osmolality (280-300) Calcium (8.6-10.3) mg/dL Total Bilirubin (0.3-1.0) mg/dL Direct Bilirubin (0.0-0.2) mg/dL Indirect Bilirubin (0.0-1.2) mg/dL AST (13-39) Units/L ALT (7-52) Units/L Alkaline Phosphatase (34-104) Units/L Troponin I (< 0.04) ng/mL B-Natriuretic Peptide (Less than 100) pg/mL Serum Total Protein (6.4-8.9) g/dL Albumin (3.5-5.7) g/dL Globulin (2.4-3.5) g/dL Albumin/Globulin Ratio (1.1-2.2) Attestation Statement - Attestation Attestation: I examined this patient and my medical decision-making was reviewed with the Resident Physician. I agree with the documented findings, disposition and treatment plan as described except to the extent set forth below. 72 year old male presents to the ED with complaints of constipation and feels like his chest is pressuring down on him. Kim was recently admitted to the hospital for CHF evalation. WE accepted sign out night team (Dora) and will followup on labs and then base disposition on re-evlaution. BNP is pending.
--- NOTE | 2018-03-12 10:10 | Internal Med History&Physical ---
Date of Encounter: 03/12/18 Time of Encounter: 10:10 Internal Medicine - H&P: HPI Chief complaint: Shortness of breath History of present illness: Mr. Hardwick is a 72 year old male history of A. fib, CHF, hypertension, hyperlipidemia who presents with acute CHF exacerbation per cinical history and exam. He noted 3-4 days history of worsening orthopnea, had to sit in a recliner to greater than, PND associated with peripheral swelling of his hands and feet. He shortness of breath got so bad that he had to sleep in recliner. Admits to intermittent dyspnea on exertion sometimes with symptoms on 50-100ft but better on other occasions. He reports taking the Lasix once a day and follows up with Dr. Read. Symptoms got worse in the last few days leading to ED presentation. In the ED he was given IV Lasix with improvement of swelling of his hands. Of note patient was recently admitted here several months ago in January of this year with similar symptoms. EKG personally reviewed with Rodger simons XR/XR chest 1V portable IMPRESSION: Vascular congestion. CT/CT abd pelvis wo no iv no oral IMPRESSION: 1. No CT evidence for acute intra-abdominal process. 2. Small bilateral pleural effusions. 3. Small fat containing periumbilical hernia. 4. Mild enlargement of the prostate. Correlation with physical exam findings and PSA for BPH is recommended. TTE 01/14/2018 Findings: Study Quality * Technically sub-optimal due to body habitus. ECG Findings * Atrial fibrillation. Left Ventricle * LVEF 50%. * Unable to evaluate segmental wall motion due to technical quality. * Indeterminate diastolic function. Right Ventricle * Normal right ventricular structure and function. Left Atrium * Mildly dilated left atrium. Right Atrium * Normal right atrial size. Interatrial Septum * Interatrial septum not well evaluated. Aortic Valve * Mild aortic regurgitation. Mitral Valve * Moderate mitral regurgitation. Tricuspid Valve * Estimated RVSP is 32 mmHg. * Estimated RA pressure is 20 mmHg. * Moderate pulmonary hypertension. Pulmonic Valve * Pulmonic valve not well visualized. Aorta * Normally sized aortic root. Pericardium * The pericardium appears normal. IVC * The IVC is dilated. * IVC plethora is noted Past Med Surg Social Fam HX - Past Medical History Medical history: atrial fibrillation, COPD, coronary artery disease, GERD, hyperlipidemia, hypertension, myocardial infarction, other Additional medical history: heart problems Psychiatric history: no psych history - Past Surgical History Surgical History: appendectomy Additional surgical history: cardiac stent x 1 - Social History Smoking Status: Former smoker Smokeless Tobacco Status: No Alcohol use: none Drug use: none - Family History Mother Living Status: Hx Family Cardiac Disorders: Yes Hx Family Respiratory Disorders: Yes Hx Family Cancer: No Hx Family GI Disorders: No Hx Family Endocrine Disorder: Yes (diabetes) Hx Family Neuromuscular Disorders: No Hx Family Neurologic Disorders: No Hx Family HEENT Disorders: No Hx Family Autoimmune Disorders: No Father Living Status: Hx Family Cardiac Disorders: Yes Hx Family Respiratory Disorders: No Hx Family Cancer: No Hx Family GI Disorders: No Hx Family Endocrine Disorder: No Hx Family Neuromuscular Disorders: No Hx Family Neurologic Disorders: No Hx Family HEENT Disorders: No Hx Family Autoimmune Disorders: No Internal Medicine - H&P: Meds RX: Rivaroxaban [Xarelto] 20 mg PO HS #30 tablet 08/19/15 [Rx] RX: Aspirin Enteric Coated [Aspirin EC] 81 mg PO DAILY #30 tablet.dr 08/20/15 [ Rx] RX: GuaiFENesin ER [Mucinex] 1,200 mg PO BID #20 tbbp.12hr 08/22/17 [Rx] RX: Finasteride [Proscar] 5 mg PO DAILY 01/12/18 [History] RX: Meloxicam [Mobic] 7.5 mg PO DAILY 01/12/18 [History] RX: Multivit-Min/FA/Lycopen/Lutein [A Thru Z Select Multivit Tab] 1 tab PO DAILY 01/12/18 [History] RX: Omeprazole [PriLOSEC] 40 mg PO BID 01/12/18 [History] Furosemide [Lasix] 20 mg PO DAILY #30 tablet 01/14/18 [Rx] RX: Metoprolol [Lopressor] 75 mg PO BID #60 tablet 01/14/18 [Rx] Nitroglycerin [Nitrostat] 0.4 mg SL Q5M PRN 03/12/18 [History] 3 Allergy/AdvReac Type Severity Reaction Status Date / Time Wasjkbo-Eza-Ktl Reductase AdvReac Muscle Pain Verified 03/12/18 08:51 Inhibitor [Statins] All Systems PM: A 10-system review of systems was performed and is negative for pertinent findings except as documented above in the HPI. Review of systems: ROS 14 point review of systems reviewed as best as possible given presentation. Pertinent positive or negative as per HPI or otherwise reviewed as negative - Constitutional Vitals: Temp Pulse Resp BP Pulse Ox 97.5 F L 106 18 120/93 91 03/12/18 06:32 03/12/18 07:56 03/12/18 07:56 03/12/18 07:56 03/12/18 07:56 Exam: General - AAO x 3 Psych - Appropriate affect/speech. No agitation Eyes - PATTI. Eye lids intact. No scleral icterus Neuro - No gross peripheral or central neuro deficits on inspection Heart - Sinus. RRR. S1 and S2 present. No added HS/murmurs appreciated. No elevated JVD appreciated. Lung - Adequate air entry b/l, bibasal crackles, no wheeze GI - Soft, non-tender. No hepatosplenomegaly/ascites. BS+ - No CVA/suprapubic tenderness or palpable bladder distension Skin - Intact. No rash/petechiae/ecchymosis. Warm extremities. +1 bilateral edema Internal Med - H&P Results - Labs CBC & Chem 7: 03/12/18 07:05 03/12/18 07:05 Labs: Short CBC 03/12/18 Range/Units 07:05 WBC 8.1 (4.3-11.1) K/mcL Hgb 13.7 (12.9-16.9) g/dL Hct 39.5 (37.5-50.1) % Plt Count 201 (140-400) K/mcL Neutrophils # 6.0 (1.6-8.9) K/mcL BMP 03/12/18 07:05 Sodium 142 Potassium 3.7 Chloride 111 H Carbon Dioxide 24 BUN 21 Creatinine 0.87 Glucose 99 Calcium 8.8 Cardiac Enzymes 03/12/18 Range/Units 07:05 Troponin I < 0.03 (< 0.04) ng/mL Liver Function 03/12/18 Range/Units 07:05 Total Bilirubin 0.7 (0.3-1.0) mg/dL Direct Bilirubin 0.1 (0.0-0.2) mg/dL AST 43 H (13-39) Units/L ALT 48 (7-52) Units/L Alkaline Phosphatase 62 (34-104) Units/L Albumin 4.0 (3.5-5.7) g/dL - Impressions ITS Impressions Chest X-Ray 03/12/18 06:50 IMPRESSION: Vascular congestion. D/ / 03/12/2018 07:47:22 Art Lomeli MD / Shey Carter Interpreting Provider: Art Lomeli MD Abdomen/Pelvis CT 03/12/18 07:21 IMPRESSION: 1. No CT evidence for acute intra-abdominal process. 2. Small bilateral pleural effusions. 3. Small fat containing periumbilical hernia. 4. Mild enlargement of the prostate. Correlation with physical exam findings and PSA for BPH is recommended. D/ / Seamus Lebron / Seamus Lebron Interpreting Provider: Seamus Lebron - Assessment and plan (1) CHF (congestive heart failure) Current Visit: Yes Status: Acute Assessment and plan: IV lasix BID I/Os cardiac diet likely diastolic dysfunction - had TTE recently 01/14/[address] Read outpatient Qualifiers: Heart failure type: systolic Heart failure chronicity: acute on chronic Qualified Code(s): I50.23 - Acute on chronic systolic (congestive) heart failure (2) Atrial fibrillation Current Visit: No Status: Chronic Assessment and plan: continue luis antonio virginie ,xarelto Qualifiers: Atrial fibrillation type: paroxysmal Qualified Code(s): I48.0 - Paroxysmal atrial fibrillation (3) BPH (benign prostatic hyperplasia) Current Visit: No Status: Chronic Assessment and plan: continue med Qualifiers: Lower urinary tract symptom presence: unspecified whether lower urinary tract symptoms present Qualified Code(s): N40.0 - Benign prostatic hyperplasia without lower urinary tract symptoms (4) Hyperlipidemia Current Visit: No Status: Chronic Assessment and plan: continue med Qualifiers: Hyperlipidemia type: mixed hyperlipidemia Qualified Code(s): E78.2 - Mixed hyperlipidemia (5) Hypertension Current Visit: No Status: Chronic Assessment and plan: continue med Qualifiers: Hypertension type: essential hypertension Qualified Code(s): I10 - Essential (primary) hypertension - Time Spent With Patient Total time spent is greater than 50% in coordination of care (as documented) at patient's floor/unit and/or counseling patient:
[2018-03-12] MEDS ORDERED: Nitroglycerin 0.4 MG TAB.SUBL SL PRN (10:11)
[2018-03-12] MEDS ORDERED: Naloxone 0.4 MG/ML INJ IVP PRN (10:12)
[2018-03-12] MEDS: Aspirin Enteric Coated 81 MG Tablet PO SCH (11:23)
[2018-03-12] MEDS: Finasteride 5 MG TABLET PO SCH (13:56)
[2018-03-12] MEDS: Acetaminophen 325 MG TABLET PO PRN (16:47)
--- NOTE | 2018-03-12 17:07 | Electrocardiograph Report ---
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
[2018-03-12] MEDS: *HR* Rivaroxaban 10 MG TABLET PO SCH (20:53)
[2018-03-13 07:47] LABS: BUN/Creatinine Ratio 22 (6-26); Blood Urea Nitrogen 20 mg/dL (8-23); Calcium 8.9 mg/dL (8.6-10.3); Carbon Dioxide 24 mEq/L (23-29); Chloride 108 mEq/L (98-107); Glucose 103 mg/dL (70-105); Magnesium 2.3 mg/dL (1.6-2.6); Osmolality,Calculated 295 (280-300); Potassium 3.4 mEq/L (3.5-5.1); Sodium 141 mEq/L (136-145); eGFR For African Americans > 60 (> 60); eGFR For Non-African Americans > 60 (> 60)
[2018-03-13] MEDS: Aspirin Enteric Coated 81 MG Tablet PO SCH (07:48)
[2018-03-13] MEDS: Finasteride 5 MG TABLET PO SCH (07:48)
[2018-03-13] MEDS ORDERED: Furosemide 40 MG/4 ML VIAL IVP SCH (09:00)
[2018-03-13] MEDS ORDERED: Potassium Chloride Elixir 20 MEQ/15 ML UDC PO ONE (11:05)
--- NOTE | 2018-03-13 11:08 | Internal Med Progress Note ---
Date of Encounter: 03/13/18 Time of Encounter: 11:00 - Assessment and plan (1) CHF (congestive heart failure) Current Visit: Yes Status: Acute Assessment and plan: Continue IV lasix BID I/Os cardiac diet likely diastolic dysfunction - had TTE recently 01/14/[address] Read outpatient Qualifiers: Heart failure type: diastolic Heart failure chronicity: acute on chronic Qualified Code(s): I50.33 - Acute on chronic diastolic (congestive) heart failure (2) Atrial fibrillation Current Visit: No Status: Chronic Assessment and plan: continue luis antonio virginie ,xarelto Qualifiers: Atrial fibrillation type: paroxysmal Qualified Code(s): I48.0 - Paroxysmal atrial fibrillation (3) Hyperlipidemia Current Visit: No Status: Chronic Assessment and plan: continue med Qualifiers: Hyperlipidemia type: mixed hyperlipidemia Qualified Code(s): E78.2 - Mixed hyperlipidemia (4) Hypertension Current Visit: No Status: Chronic Assessment and plan: continue med Qualifiers: Hypertension type: essential hypertension Qualified Code(s): I10 - Essential (primary) hypertension (5) BPH (benign prostatic hyperplasia) Current Visit: No Status: Chronic Assessment and plan: continue med Qualifiers: Lower urinary tract symptom presence: unspecified whether lower urinary tract symptoms present Qualified Code(s): N40.0 - Benign prostatic hyperplasia without lower urinary tract symptoms - Time Spent With Patient Total time spent is greater than 50% in coordination of care (as documented) at patient's floor/unit and/or counseling patient: - Subjective Interval history: No acute events overnight - Constitutional Vitals: Temp Pulse Resp BP Pulse Ox 98 F 94 20 121/80 94 03/13/18 06:38 03/13/18 06:38 03/13/18 06:38 03/13/18 06:38 03/13/18 07:41 - Head Head exam: Present: atraumatic, normocephalic - Eye Eye exam: Present: PERRL, conjuntiva pink, sclera anicteric Pupils: Present: PERRL - Neck Neck exam general surgery: Present: supple, trachea midline. Absent: lymphadenopathy - Respiratory Respiratory exam: Present: CTAB. Absent: accessory muscle use, rales, rhonchi, wheezes - Cardiovascular Cardiovascular exam: Present: RRR, +S1, +S2. Absent: diastolic murmur, gallop, rubs, systolic murmur - GI/Abdominal GI/Abdominal exam: Present: normal bowel sounds, soft, no peritoneal signs. Absent: distended, tenderness - Extremities Exam Extremities exam: Present: warm, radial pulses palpable and symmetrical. Absent : calf tenderness, cyanotic, pedal edema Additional comments: 2+ pitting edema - Neurological Exam Neurological exam: Present: CN II-XII intact, oriented X3, no focal deficits. Absent: pronater drift, facial droop, speech deficit - Skin Skin exam: Present: dry, intact Internal Medicine: Result - Labs CBC & Chem 7: 03/12/18 07:05 03/13/18 07:12 Labs: BMP 03/13/18 07:12 Sodium 141 Potassium 3.4 L Chloride 108 H Carbon Dioxide 24 BUN 20 Creatinine 0.91 Glucose 103 Calcium 8.9 - ABG Interpretation ABG results: PT/INR, D-dimer PT 17.7 Seconds (9.4-12.1) H 03/12/18 07:05 Consult Discharge Plan - Plan Referrals: Osvaldo Brink Jr, MD [Primary Care Provider] -
[2018-03-13] MEDS: Furosemide 40 MG/4 ML VIAL IVP SCH (15:46)
[2018-03-13] MEDS: Acetaminophen 325 MG TABLET PO PRN (16:02)
[2018-03-13] MEDS: *HR* Rivaroxaban 10 MG TABLET PO SCH (20:44)
[2018-03-14 06:50] LABS: Basophils % 0.2 %; Eosinophils # 0.3 K/mcL (0.0-0.6); Eosinophils % 3.9 %; Hematocrit 40.9 % (37.5-50.1); Hemoglobin 14.4 g/dL (12.9-16.9); Immature Granulocytes % 0.2 % (0-4); Lymphocytes # 1.3 K/mcL (0.6-4.6); Lymphocytes % 15.6 %; Mean Corpuscular HGB Conc 35.2 g/dL (31.6-35.5); Mean Corpuscular Hemoglobin 32.2 pg (28.0-33.3); Mean Corpuscular Volume 91.5 fL (83.0-100.0); Mean Platelet Volume 9.8 fL (9.4-12.4); Monocytes # 0.8 K/mcL (0.0-1.3); Monocytes % 9.6 %; Neutrophils # 5.8 K/mcL (1.6-8.9); Platelet Count 187 K/mcL (140-400); Red Blood Count 4.47 M/mcL (4.19-5.50); Red Cell Distribution Width 13.7 % (11.5-14.5); Segmented Neutrophils % 70.5 %
[2018-03-14 08:24] LABS: BUN/Creatinine Ratio 22 (6-26); Blood Urea Nitrogen 23 mg/dL (8-23); Calcium 9.1 mg/dL (8.6-10.3); Carbon Dioxide 29 mEq/L (23-29); Chloride 106 mEq/L (98-107); Glucose 104 mg/dL (70-105); Osmolality,Calculated 296 (280-300); Potassium 3.9 mEq/L (3.5-5.1); Sodium 141 mEq/L (136-145); eGFR For African Americans > 60 (> 60); eGFR For Non-African Americans > 60 (> 60)
[2018-03-14] MEDS: Aspirin Enteric Coated 81 MG Tablet PO SCH (08:29)
[2018-03-14] MEDS: Furosemide 40 MG/4 ML VIAL IVP SCH (08:29)
[2018-03-14] MEDS: Finasteride 5 MG TABLET PO SCH (08:29)
[2018-03-14 11:05] VITALS: BP 121/80
--- NOTE | 2018-03-14 11:08 | Discharge Summary ---
Orders not resulted at time of discharge: Pending orders 03/15/18 04:00 Basic Metabolic Panel AM 0400 CBC [Complete Blood Count] [HEME] AM 0400 03/16/18 04:00 Basic Metabolic Panel AM 0400 CBC [Complete Blood Count] [HEME] AM 0400 03/17/18 04:00 Basic Metabolic Panel AM 0400 CBC [Complete Blood Count] [HEME] AM 0400 03/18/18 04:00 Basic Metabolic Panel AM 0400 CBC [Complete Blood Count] [HEME] AM 0400 03/19/18 04:00 Basic Metabolic Panel AM 0400 CBC [Complete Blood Count] [HEME] AM 0400 Date of Encounter: 03/14/18 Time of Encounter: 11:00 - Discharge Diagnosis (1) CHF (congestive heart failure) Priority: Primary Status: Acute Assessment and Plan: 72 year old male history of A. fib, CHF, hypertension, hyperlipidemia who presents with acute CHF exacerbation per clinical history and exam. He noted 3- 4 days history of worsening orthopnea, had to sit in a recliner to greater and associated with peripheral swelling of his hands and feet. He was started on diuresis with IV lasix BID with resolution of his swelling and SOB. 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 Furosemide 40mg BID was added to his regimen on discharge Qualifiers: Heart failure type: diastolic Heart failure chronicity: acute on chronic Qualified Code(s): I50.33 - Acute on chronic diastolic (congestive) heart failure (2) Atrial fibrillation Priority: Secondary Status: Chronic Qualifiers: Atrial fibrillation type: paroxysmal Qualified Code(s): I48.0 - Paroxysmal atrial fibrillation (3) Hyperlipidemia Priority: Secondary Status: Chronic Qualifiers: Hyperlipidemia type: mixed hyperlipidemia Qualified Code(s): E78.2 - Mixed hyperlipidemia (4) Hypertension Priority: Secondary Status: Chronic Qualifiers: Hypertension type: essential hypertension Qualified Code(s): I10 - Essential (primary) hypertension (5) BPH (benign prostatic hyperplasia) Priority: Secondary Status: Chronic Qualifiers: Lower urinary tract symptom presence: unspecified whether lower urinary tract symptoms present Qualified Code(s): N40.0 - Benign prostatic hyperplasia without lower urinary tract symptoms Hospital course: Mr. Hardwick is a 72 year old male - Time Spent with Patient Total time spent providing and/or coordinating discharge services: - Discharge Medications Prescriptions: Furosemide [Lasix] 40 mg PO BID #60 tab Home Medications: Rivaroxaban [Xarelto] 20 mg PO HS #30 tablet 08/19/15 [Rx] Aspirin Enteric Coated [Aspirin EC] 81 mg PO DAILY #30 tablet. 08/20/15 [Rx] GuaiFENesin ER [Mucinex] 1,200 mg PO BID #20 tbbp.12hr 08/22/17 [Rx] Finasteride [Proscar] 5 mg PO DAILY 01/12/18 [History] Multivit-Min/FA/Lycopen/Lutein [A Thru Z Select Multivit Tab] 1 tab PO DAILY 03/26 [History] Omeprazole [PriLOSEC] 40 mg PO BID 01/12/18 [History] Metoprolol [Lopressor] 75 mg PO BID #60 tablet 01/14/18 [Rx] Nitroglycerin [Nitrostat] 0.4 mg SL Q5M PRN 03/12/18 [History] Furosemide [Lasix] 40 mg PO BID #60 tab 03/14/18 [Rx] Allergies/Adverse Reactions: 3 Allergy/AdvReac Type Severity Reaction Status Date / Time Zcxlfmg-Etw-Pdr Reductase AdvReac Muscle Pain Verified 03/12/18 08:51 Inhibitor [Statins] Date of admission: 03/12/18 11:51 Primary care physician: Osvaldo Brink Jr, MD - Constitutional Vitals: Temp Pulse Resp BP Pulse Ox 97.9 F 103 18 121/78 91 03/14/18 08:00 03/14/18 08:00 03/14/18 08:00 03/14/18 08:00 03/14/18 08:00 - Head Head exam: Present: atraumatic, normocephalic - Eye Eye exam: Present: PERRL, conjuntiva pink, sclera anicteric Pupils: Present: PERRL - Neck Neck exam general surgery: Present: supple, trachea midline. Absent: lymphadenopathy - Respiratory Respiratory exam: Present: CTAB. Absent: accessory muscle use, rales, rhonchi, wheezes - Cardiovascular Cardiovascular exam: Present: RRR, +S1, +S2. Absent: diastolic murmur, gallop, rubs, systolic murmur - GI/Abdominal GI/Abdominal exam: Present: normal bowel sounds, soft, no peritoneal signs. Absent: distended, tenderness - Extremities Exam Extremities exam: Present: warm, radial pulses palpable and symmetrical. Absent : calf tenderness, cyanotic, pedal edema - Neurological Exam Neurological exam: Present: CN II-XII intact, oriented X3, no focal deficits. Absent: pronater drift, facial droop, speech deficit - Skin Skin exam: Present: dry, intact - Patient Status Disposition: Home, Self-Care Condition: Undetermined - Discharge Instructions Instructions: Heart Failure (DC) Follow Up With: Osvaldo Brink Jr, MD [Primary Care Provider] - 03/16/18 11:00 am (Please follow up as scheduled.)
== END 2018-03-14 12:15 | disposition home or self-care (01) ==
LOC: EMEROO 06:16 → 2ANU 06:16
PROVIDERS: ADMIT Internal Medicine Hematology & Oncology; ATTEND Internal Medicine Hematology & Oncology